=== PATIENT | female | born 1930 | race Caucasian/White ===

== ENCOUNTER 2016-03-16 07:38 | Day surgery (SDC) | payer MEDICARE, BC ==
[~2016-03-16 07:38] MED LIST: Buffered Lidocaine 1% SYR 3ML* 3 ML/SYR SYRINGE INTRADERM ONE; Buffered Lidocaine 1% SYR 3ML* 3 ML/SYR SYRINGE ONE; Famotidine IV* 10 MG/ML 2 ML (20 mg) IV ONE; Famotidine IV* 10 MG/ML 2 ML (20 mg) ONE; Morphine INJ* 2 MG/ML 1 ML CARPUJECT IV PRN; PROCHLORPERAZINE INJ 5 MG/ML 2 ML VIAL IV PRN; ceFAZolin 2 GM PREMIX (*) 2 GM/50 ML BAG IVPB ONE; fentaNYL* 50 MCG/ML 2 ML VIAL (100 MCG VIAL) IV PRN; oxyCODONE/Acetamin 5/325 MG* TAB PO PRN
[2016-03-16] MEDS ORDERED: Famotidine IV* 10 MG/ML 2 ML (20 mg) ONE (07:58)
[2016-03-16] MEDS ORDERED: Buffered Lidocaine 1% SYR 3ML* 3 ML/SYR SYRINGE ONE (07:58)
[2016-03-16] MEDS ORDERED: ceFAZolin 2 GM PREMIX (*) 2 GM/50 ML BAG IVPB ONE (07:58)
[2016-03-16] MEDS ORDERED: fentaNYL* 50 MCG/ML 2 ML VIAL (100 MCG VIAL) ONE (08:09)
[2016-03-16] MEDS ORDERED: KETAMINE HCL* 50 MG/ML 10 ML VIAL ONE (08:09)
[2016-03-16] MEDS ORDERED: Midazolam* 1 MG/ML 2 ML VIAL (2 MG) ONE (08:09)
[2016-03-16] MEDS ORDERED: Propofol* 10 MG/ML 20 ML BTL IV PUSH ONE (08:36)
[2016-03-16] MEDS ORDERED: Bupivacaine 0.5% W/EPI SDV* 30 ML VIAL ONE (09:20)
[2016-03-16] MEDS ORDERED: Lidocaine 1% INJ* 10 MG/ML 30 ML SDV ONE (09:21)
[2016-03-16] MEDS ORDERED: Phenylephrine INJ* 10 MG/ML 1 ML VIAL (10 MG) ONE (10:02)
[2016-03-16] MEDS ORDERED: Dexamethasone IV* 4 MG/ML 1 ML (4 MG) ONE (10:39)
[2016-03-16] MEDS ORDERED: Lidocaine 2% PF* 10 ML AMP ONE (10:39)
[2016-03-16] MEDS ORDERED: Ondansetron INJ* 2 MG/ML VIAL ONE (10:39)
--- NOTE | 2016-03-16 10:54 | SURGPN ---
Brief Operative Note - Surgery Procedures: OPERATIVE REPORT PRE-OP: Right inguinal hernia POST-OP: Right indirect inguinal hernia PROCEDURE: Open repair with mesh of indirect right inguinal hernia SURGEON: MD Ramu ANESTHESIA:Local with MAC with [place] ASST: None IVF: min EBL: min SPECIMEN: none DRAIN: none WOUND CLASS:One COMPLICATIONS: none TO PACU
[2016-03-16 12:27] VITALS: BP 138/57
--- NOTE | 2016-03-17 03:39 | OP ---
DATE OF OPERATION: 03/16/16 [facility] DATE OF : 28 SURGEON: Austen Guallpa MD LABORATORY AIDE: None. ANESTHESIOLOGIST: Dr. Monteiro. ANESTHESIA: Local with monitored anesthesia care. PRE-OP DIAGNOSIS: Right inguinal hernia. POST-OP DIAGNOSIS: Right indirect inguinal hernia. OPERATIVE PROCEDURE: Open repair with mesh of a right indirect inguinal hernia. ESTIMATED BLOOD LOSS: Minimal. SPECIMENS: None. COMPLICATION: None. DRAINS: None. WOUND CLASSIFICATION: I. IV FLUIDS: Minimal. FINDINGS: Moderate-sized indirect inguinal hernia repaired with mesh. DESCRIPTION OF PROCEDURE: Written informed consent was obtained, the right groin was marked with indelible ink, and preoperative antibiotics were administered and the patient was taken to the operating room and placed in the supine position. Sequential compression devices and a warming blanket were applied. Anesthesia was administered. The right groin and lower abdomen were prepped and draped in the usual sterile fashion. Time-out verification was completed. Next, 0.25% Marcaine mixed with 1% lidocaine was infiltrated in the right groin area. An oblique incision was made several fingerbreadths above the inguinal crease, carried down through Yodit's fascia. The external oblique aponeurosis was identified and opened in the direction of its fibers. It was evident that there was a hernia sac protruding through the inguinal floor. With careful dissection, I was able to identify the direct space, which appeared to be intact and the neck of the indirect hernia sac was dissected up into the internal ring lateral to the palpable epigastric vessels and was reduced without difficulty. I did divide the round ligament and also an ilioinguinal nerve. The ilioinguinal and iliohypogastric nerves were sacrificed in anticipation of a complete mesh placement. Once the hernia was reduced, a 4 cm x 8 cm piece of polypropylene mesh was cut in an oval shape and sutured to the pubic tubercle medially, the conjoined tendon superiorly, the musculature laterally with interrupted 0 Polysorb suture. It was secured to the inguinal ligament inferiorly with a running 0 Polysorb suture. This covered the indirect and direct spaces nicely with obvious no spermatic cord. Hemostasis was assured and additional marking was infiltrated. The external oblique aponeurosis was closed with running 3-0 Polysorb suture. The Yodit's fascia was closed with interrupted 3-0 Polysorb suture. The skin was approximated with subcuticular 4-0 Polysorb suture. Steri-Strips and sterile dressings were applied. The patient tolerated the procedure well, was taken to the recovery room in stable condition. [id number]/[facility] #: [id number] ART
== END 2016-03-16 12:26 | disposition home or self-care (01) ==
LOC: OR 07:38
PROVIDERS: ATTEND Surgery
DX: K40.90 Unilateral inguinal hernia, without obstruction or gangrene, not specified as recurrent (principal); J44.9 Chronic obstructive pulmonary disease, unspecified; I10 Essential (primary) hypertension; I34.0 Nonrheumatic mitral (valve) insufficiency; I65.29 Occlusion and stenosis of unspecified carotid artery
CPT/HCPCS: C1781; J0690; J1100; J2001; J2250; J2405; J2704; J3010

== ENCOUNTER 2017-07-29 13:59 | Emergency (ER) | payer BC, MEDICARE ==
[2017-07-29 14:28] VITALS: BP 162/63
--- NOTE | 2017-07-29 14:45 | UC ---
Eye Complaint HPI - HPI Summary HPI Summary: For the past 4 + weeks, aware of a papule infer-lateral to the right eye, with increasing eye discharge. Over the past 4 days, has increase in eythema of the upper and lower lids on on the right, without pain or changes in vision. No photophobia. No fever. - History of Current Complaint Chief Complaint: UCEye Stated Complaint: EYE REDNESS/SWELLING Time Seen by Provider: 07/29/17 14:33 Hx Obtained From: Patient Onset/Duration: Gradual Onset, Lasting Days Timing: Constant Severity Initially: Mild Severity Currently: Moderate Pain Intensity: 0 Aggravating Factor(s): Other - touch Alleviating Factor(s): Other - warm compresses Associated Signs And Symptoms: Positive: Drainage (Purulent) - Risk Factors Penetrating Injury Risk Factor: Negative Acute Glaucoma Risk Factors: Negative - Allergies/Home Medications Allergies/Adverse Reactions: Allergies Allergy/AdvReac Type Severity Reaction Status Date / Time MS Sulfamethoxazole Allergy Mild Shortness Verified 03/09/16 11:05 w/Trimethoprim of Breath [From Bactrim] MS Diltiazem [From Cartia XT] Allergy Shortness Verified 03/09/16 11:05 of Breath MS Sulfa Drugs [Sulfa Drugs] Allergy Shortness Verified 03/09/16 11:05 of Breath Home Medications: Home Medications Acetaminophen [Acetaminophen ER] 650 mg PO Q6H PRN 07/29/17 [History Confirmed 07/29/17] Arnica 1 each TOPICAL TID PRN 07/29/17 [History Confirmed 07/29/17] Bismuth Subsalicylate [Bismatrol] 15 ml PO Q4H PRN 07/29/17 [History Confirmed 07/29/17] Calcium Carb/Magnesium Hydrox [Antacid 1000-200 mg Tab Chew] 1 each PO DAILY [History Confirmed 07/29/17] Conjugated Estrogens VAG CM* [Premarin VAG CREAM*] 1 each TOPICAL WEEKLY [History Confirmed 07/29/17] Guaifenesin/Dextromethorphan [Guaifenesin Dm Syrup] 10 ml PO Q4H PRN 07/29/17 [ History Confirmed 07/29/17] Lidocaine 4% GEL* [Topicaine 4% GEL*] 1 applic PO TID PRN 07/29/17 [History Confirmed 07/29/17] Magnesium Hydroxide LIQ* [Milk of Magnesia LIQ*] 30 ml PO DAILY 07/29/17 [ History Confirmed 07/29/17] [place]-3S/Dha/Epa/Fish Oil [Fish Oil 1,200 mg Softgel] 1 each PO DAILY 07/29/17 [ History Confirmed 07/29/17] PARoxetine HCL TAB* [Paxil TAB*] 40 mg PO DAILY 07/29/17 [History Confirmed ] Psyllium MARLENI* [Metamucil MARLENI*] 1 pkt PO DAILY PRN 07/29/17 [History Confirmed ] Silver Sulfadiazine 1%* [SILVadine 1%*] 1 applic TOPICAL DAILY 07/29/17 [ History Confirmed 07/29/17] diphenhydrAMINE HCl [Diphenhist] 25 mg PO Q6H PRN 07/29/17 [History Confirmed ] PMH/Surg Hx/FS Hx/Imm Hx - Additional Past Medical History Additional PMH: osteoporosis peripheral edema bilateral hearing loss--wears aides - Surgical History Surgical History: Yes Surgery Procedure, Year, and Place: APPY AT AGE 9;. TONSILLECTOMY AT AGE 18, [facility]. GB REMOVED AT AGE 29. [facility]. PT WEARS A PESSARY FOR VAGINAL PROLAPSE HAS HAD THIS FOR A FEW YEARS NOW. 2012 pancreatic stent. [facility]. 2013 BILATERAL CATARACT EXTRACTION WITH IOL IMPLANT, [facility] - Family History Known Family History: Positive: Unknown - Social History Occupation: Retired Lives: Assisted Living - [facility] Alcohol Use: None Substance Use Type: None Smoking Status (MU): Never Smoked Tobacco Review of Systems Constitutional: Negative Skin: Negative Eyes: Drainage, Eye Redness ENT: Negative Respiratory: Negative Cardiovascular: Negative Gastrointestinal: Negative Genitourinary: Negative Motor: Negative Neurovascular: Negative Musculoskeletal: Negative Neurological: Headache - has had a headache off and on, but none today Psychological: Negative Is Patient Immunocompromised?: No All Other Systems Reviewed And Are Negative: Yes Physical Exam Triage Information Reviewed: Yes Appearance: Well-Appearing - elderly woman, marked kyphosis, Well-Nourished Vital Signs: Initial Vital Signs Temp 99.4 F 07/29/17 14:22 Pulse 85 07/29/17 14:22 Resp 16 07/29/17 14:22 BP 162/63 07/29/17 14:22 Pulse Ox 98 07/29/17 14:22 Eye Exam: Other - erythema over approx 6 cm circumference both upper and lower lids. Boggy conjunctiva left lower lid. + light discharge. No photophobia. Eyes move symmetrically with a few beats of lateral nystagmus. Eyes: Positive: Conjunctiva Inflamed - mild injection both right and left, with purulent discharge on the left and right. ENT: Positive: Pharynx normal, TMs normal Respiratory: Positive: Lungs clear - Mildly decreased breath sounds Cardiovascular: Positive: RRR, Murmur:Sys:Grade _?_/ - 1, left sternal border to apex. Musculoskeletal: Positive: Edema @ - both lower legs, pitting edema 2-3+ Neurological: Positive: Alert, Muscle Tone Normal Psychological Exam: Other - mildly anxious Skin Exam: Normal Eye Complaint Course/Dx - Course Course Of Treatment: cephalexin for pre-septal cellulitis, drops for conjunctivitis. - Differential Dx/Diagnosis Differential Diagnosis/HQI/PQRI: Periorbital Cellulitis, Orbital Cellulitis, Uveitis Provider Diagnoses: preseptal cellulitis; bilateral conjunctivitis. Discharge - Sign-Out/Discharge Documenting (check all that apply): Discharge/Admit/Transfer - Discharge Plan Condition: Stable Disposition: HOME Prescriptions: cephALEXin [Keflex] 500 mg PO QID #20 capsule Tobramycin 0.3% OPHTH.CHAVA* 2 drop BOTH EYES QID 5 Days #1 btl Patient Education Materials: Periorbital Cellulitis in Adults (ED) Referrals: Jameel Reid MD [Primary Care Provider] - Additional Instructions: Begin cephalexin to treat the infection in the soft tissue around the right eye. Continue compressing the eye for 5 minutes 2 or 3 times per day. Use drops to BOTH eyes to treat the conjunctivitis which you have. Follow up if you are not seeing improvement in 2 days, OR earlier if you develop eye pain or fever or any visual blurring. - Billing Disposition and Condition Condition: STABLE Disposition: Home
--- NOTE | 2017-07-31 10:00 | ED ---
Progress - Progress Note Progress Note: 87 yr old female on keflex as prescribed by provider for preseptal cellulitis and also tobramycin drops to eye for some drainage. I am told the patient has used all the eye drops in two days. I have not seen or examined the patient and am going just on the provider note from the other day and what has been relayed to me by the nurse in addition to the note given me by the nurse. I am told the patient has had marked improvement which is not in the nurses note. If the patient has marked improvement and redness almost completely gone, and drainage gone: she should continue her present antibiotic orally as this seems to be working. Would not refill the eye drops as they can cause irritation, and she is on oral antibiotics which can treat the conjunctivitis component. If the patient has any pain, increased redness, fever or concerns she needs to go the hospital emergency department for further work up and treatment. Course/Dx - Course Course Of Treatment: cephalexin for pre-septal cellulitis, drops for conjunctivitis. Discharge - Sign-Out/Discharge Documenting (check all that apply): Discharge/Admit/Transfer - Discharge Plan Condition: Stable Disposition: HOME Prescriptions: cephALEXin [Keflex] 500 mg PO QID #20 capsule Tobramycin 0.3% OPHTH.CHAVA* 2 drop BOTH EYES QID 5 Days #1 btl Patient Education Materials: Periorbital Cellulitis in Adults (ED) Referrals: Jameel Reid MD [Primary Care Provider] - Additional Instructions: Begin cephalexin to treat the infection in the soft tissue around the right eye. Continue compressing the eye for 5 minutes 2 or 3 times per day. Use drops to BOTH eyes to treat the conjunctivitis which you have. Follow up if you are not seeing improvement in 2 days, OR earlier if you develop eye pain or fever or any visual blurring. - Billing Disposition and Condition Condition: STABLE Disposition: Home
== END 2017-07-29 15:23 | disposition home or self-care (01) ==
LOC: UCCORT 13:59
DX: L03.213 Periorbital cellulitis (principal); H10.9 Unspecified conjunctivitis; Z88.1 Allergy status to other antibiotic agents; Z88.8 Allergy status to other drugs, medicaments and biological substances
CPT/HCPCS: 99212; G0463

== ENCOUNTER 2017-11-22 09:56 | Emergency (ER) | payer MEDICARE ==
[2017-11-22 12:11] VITALS: BP 149/54
--- NOTE | 2017-11-22 12:54 | RAD ---
HISTORY: cough, s/p radiation to the breast COMPARISONS: August 03, 2007 VIEWS: 4: Frontal dual-energy and lateral views of the chest. FINDINGS: CARDIOMEDIASTINAL SILHOUETTE: The cardiomediastinal silhouette is normal. ROSE: The rose are normal. PLEURA: The costophrenic angles are sharp. No pleural abnormalities are noted. LUNG PARENCHYMA: There is hyperinflation with flattening of the diaphragm and expansion of the AP diameter of the chest. ABDOMEN: The upper abdomen is clear. There is no subphrenic gas. BONES AND SOFT TISSUES: There is a scoliotic curvature of the spine. Degenerative changes are noted. OTHER: None. IMPRESSION: HYPERINFLATION, CONSISTENT WITH COPD. NO ACTIVE CARDIOPULMONARY DISEASE.
--- NOTE | 2017-11-22 12:55 | RAD ---
HISTORY: left sided pleuritic pain COMPARISONS: None VIEWS: 4 , Frontal view of the chest with frontal and oblique views of the left hemithorax FINDINGS: There are minimally displaced fractures of the left eighth, ninth, and 10th ribs. There is no appreciable pneumothorax. IMPRESSION: MINIMALLY DISPLACED FRACTURES OF THE LEFT EIGHTH, NINTH, AND 10TH RIBS. NO APPRECIABLE PNEUMOTHORAX.
--- NOTE | 2017-11-22 13:04 | ED ---
Respiratory - HPI Summary HPI Summary: patient with pain in the left sided portion of the chest. fell several times at home over the last several weeks. last fall about two weeks ago. - History of Current Complaint Chief Complaint: UCGeneralIllness Stated Complaint: BODY ACHES Time Seen by Provider: 11/22/17 12:14 Hx Obtained From: Patient Onset/Duration: Gradual Onset, Lasting Days Initial Severity: Moderate Current Severity: Moderate Pain Intensity: 0 Sputum Amount: None Aggravating Factor(s): Deep Breaths Alleviating Factor(s): Nothing Associated Signs and Symptoms: Negative - Risk Factors Status Asthmaticus Risk Factors: Negative Pulmonary Embolism Risk Factors: Negative Cardiac Risk Factors: Negative Pseudomonas Risk Factors: Negative - Allergy/Home Medications Allergies/Adverse Reactions: Allergies Allergy/AdvReac Type Severity Reaction Status Date / Time diltiazem [From Cartia XT] Allergy Shortness Verified 11/22/17 11:51 of Breath Sulfa (Sulfonamide Allergy Shortness Verified 11/22/17 11:51 Antibiotics) of Breath sulfamethoxazole Allergy Shortness Verified 11/22/17 11:51 [From Bactrim] of Breath trimethoprim [From Bactrim] Allergy Shortness Verified 11/22/17 11:51 of Breath Home Medications: Home Medications FLUoxetine CAP* [Prozac CAP*] 1 tab QAM 11/22/17 [History Confirmed 11/22/17] Metoprolol Tartrate TAB* [Lopressor TAB*] 1 tab DAILY 11/22/17 [History Confirmed 11/22/17] predniSONE [Prednisone 5 MG TAB] 1 tab DAILY 11/22/17 [History Confirmed ] PMH/Surg Hx/FS Hx/Imm Hx Previously Healthy: No Endocrine/Hematology History: Denies: Hx Diabetes, Hx Systemic Lupus Erythematosus Cardiovascular History: Reports: Hx Hypertension, Other Cardiovascular Problems/ Disorders - CHOLESTEROL CONTROL WITH MEDS Denies: Hx Congestive Heart Failure, Hx Pacemaker/ICD Respiratory History: Reports: Hx Chronic Obstructive Pulmonary Disease (COPD) GI History: Reports: Hx Gastroesophageal Reflux Disease - CONTROL WITH MED, Other GI Disorders - GERD History: Reports: Other Problems/Disorders - PT HAS A PROLAPSED UTERUS - USE PESSARY Denies: Hx Dialysis, Hx Renal Disease Musculoskeletal History: Reports: Hx Arthritis Denies: Hx Rheumatoid Arthritis Sensory History: Reports: Hx Cataracts, Hx Contacts or Glasses - GLASSES, Hx Hearing Aid - BILATERAL Opthamlomology History: Reports: Hx Cataracts, Hx Contacts or Glasses - GLASSES Psychiatric History: Denies: Hx Panic Disorder - Cancer History Hx Chemotherapy: No - Surgical History Surgery Procedure, Year, and Place: APPY AT AGE 9;. TONSIL[place]OM[facility] AT AGE 18, [facility]. GB REMOVED AT AGE 29. [place], [place]. PT WEARS A PESSARY FOR VAGINAL PROLAPSE HAS HAD THIS FOR A FEW YEARS NOW. 2012 pancreatic stent. [facility]. 2013 BILATERAL CATARACT EXTRACTION WITH IOL IMPLANT, [facility] Hx Anesthesia Reactions: No Infectious Disease History: No Infectious Disease History: Denies: Traveled Outside the [place] in Last 30 Days - Family History Known Family History: Positive: Unknown - Social History Alcohol Use: None Substance Use Type: Reports: None Smoking Status (MU): Never Smoked Tobacco Review of Systems Constitutional: Negative Eyes: Negative ENT: Negative Cardiovascular: Negative Positive: Shortness Of Breath Gastrointestinal: Negative Genitourinary: Negative Musculoskeletal: Negative Skin: Negative All Other Systems Reviewed And Are Negative: Yes Physical Exam Triage Information Reviewed: Yes Vital Signs On Initial Exam: Initial Vitals Temp Pulse Resp BP Pulse Ox 36.3 C 68 16 149/54 98 11/22/17 11:59 11/22/17 11:59 11/22/17 11:59 11/22/17 11:59 11/22/17 11:59 Vital Signs Reviewed: Yes Appearance: Positive: Ill-Appearing, Pain Distress Skin: Positive: Warm, Dry Eyes: Positive: Normal ENT: Positive: Normal ENT inspection Neck: Positive: Supple Respiratory/Lung Sounds: Positive: Rales - left lower lobe Cardiovascular: Positive: Normal Abdomen Description: Positive: Nontender, No Organomegaly Bowel Sounds: Positive: Present Musculoskeletal: Positive: Other - pain right chest on palpation Neurological: Positive: Normal Psychiatric: Positive: Normal AVPU Assessment: Alert Diagnostics - Vital Signs Vital Signs Temp Pulse Resp BP Pulse Ox 11/22/17 11:59 36.3 C 68 16 149/54 98 - Laboratory Lab Statement: Any lab studies that have been ordered have been reviewed, and results considered in the medical decision making process. Disposition - Diagnoses Provider Diagnoses: Fracture, ribs Discharge - Sign-Out/Discharge Documenting (check all that apply): Patient Departure All imaging exams completed and their final reports reviewed: Yes - Discharge Plan Condition: Fair Disposition: HOME Patient Education Materials: Rib Fracture (ED) Referrals: Gauss,Jameel F, MD [Primary Care Provider] - - Billing Disposition and Condition Condition: FAIR Disposition: Home
== END 2017-11-22 13:26 | disposition home or self-care (01) ==
LOC: UCCORT 09:56
DX: S22.42XA Multiple fractures of ribs, left side, initial encounter for closed fracture (principal); W19.XXXA Unspecified fall, initial encounter; Z91.81 History of falling; Y92.009 Unspecified place in unspecified non-institutional (private) residence as the place of occurrence of the external cause; Z88.1 Allergy status to other antibiotic agents; Z88.8 Allergy status to other drugs, medicaments and biological substances; I10 Essential (primary) hypertension; K21.9 Gastro-esophageal reflux disease without esophagitis
CPT/HCPCS: 71046; 99212; G0463

== ENCOUNTER 2017-11-22 11:33 | Emergency (ER) | payer MEDICARE ==
--- OUTSIDE RECORDS SUMMARY | 2017-11-22 11:54 | XMS REPORT | Continuity of Care Document ---
:1930 External Reference #:[id number] Author Name Kay Montgomery Care Team Providers Name Role Phone Talya Martinez MD Care Team Information Ingredient Handler Unavailable Jameel Reid M.D. Primary Care Physician Unavailable Payers Type Date Identification Numbers Payment Provider Subscriber Effective: 1994 Policy Number: [id number] Medicare Kathy Ochoa PayID: [id number] [address] [place] [address] Effective: 2014 Policy Number: [id number] [place] Plan Trevon Ochoa PayID: [id number] [address] [place] [address] Advance Directives Description No Information Available Problems Description No Information Family History Date Family Member(s) Problem(s) Comments Father due to Pneumonia () Mother due to Natural Causes () First Sister Breast Cancer Social History Type Date Description Comments Sex Unknown Marital Status Patient is Occupation Patient is retired Tobacco Use Reviewed: 11/11/17 Never Smoked Cigarettes Smoking Status Reviewed: 11/11/17 Never Smoked Cigarettes ETOH Use Patient denies alcohol use Allergies, Adverse Reactions, Alerts Date Description Reaction Status Severity Comments 08/24/2014 Bactrim Urticaria Active 08/24/2014 Sulfa Urticaria Active 08/24/2014 Cartia XT Unknown Active Medications Medication Date Status Form Strength Qnty SIG Indications Ordering Provider Paroxetine HCL Active Tablets 20mg Gauss, 000 JameelWilber. Metoprolol 0 Active Tablets ER 100mg Gauss, Succinate ER 000 24HR Wilber Jorgensen. Torsemide 0 Active Tablets 20mg Gauss, 000 Lynda JorgensenD. Tramadol HCL Active Tablets 50mg Gauss, 000 Nereyda Jorgensen Hydroxyzine HCL Active Tablets 50mg Unknown 000 Shyla-C Active Tablets 500mg 1 by Unknown 000 mouth every day Vitamin B12 0 Active Tablets 250mcg 1 by Unknown 000 mouth every day Vitamin E 0 Active Capsules 200Unit 1 by Unknown 000 mouth every day Vitamin D3 Active Tablets 500Units 1 by Unknown 000 mouth every day Vitamin B6 Active Tablets 100mg Unknown 000 Potassium Active Capsules 10Meq 1 by Unknown Chloride ER 000 ER mouth every day Prednisone Active Tablets 5mg Yang Reid M.D. Hydrocortisone Active Cream 2.5% Yang Reid M.D. Raloxifene HCL Hx Tablets 60mg Yang Reid - Nereyda Jorgensen 015 Naproxen Hx Tablets 500mg Yang Reid M.D. 017 Lipitor Hx Tablets 20mg 1 by Unknown 000 - mouth every 017 day Miacalcin Hx Solution 200Unit/Ac Unknown 000 - t 017 Caltrate 600+D Hx Tablets 600-400mg- twice a Unknown 000 - Unit day 018 Folic Acid Hx Tablets 800mcg 1 by Unknown 000 - mouth every 018 day Zinc Hx Tablets 30mg 1 by Unknown 000 - mouth every 018 day Clobetasol Hx Ointment 0.05% Jackson, Propionate 000 - Lexus R.[facility]. 018 Premarin Hx Cream 0.625mg/GM Jackson, 000 - [place] [facility] 018 Naproxen Hx Tablets 500mg Gasandhya 000 - Nasreen, MLiliana 018 SSD Hx Cream 1% Gasandhya 000 - Nasreen, M.DNuvia 018 Immunizations Description No Information Available Vital Signs Date Vital Result Comment 01/25/2017 3:02pm Height 63 inches 5'3" Weight 125.00 lb Weight 56.700 kg BMI (Body Mass Index) 22.1 kg/m2 BP Systolic 131 mmHg BP Diastolic 65 mmHg Heart Rate 69 /min Post Void Residual ml 0 Bladder Scan, Indication:feeling of incomplete 09/18/2015 10:24am Height 63 inches 5'3" Weight 125.00 lb Weight 56.700 kg BMI (Body Mass Index) 22.1 kg/m2 BP Systolic 147 mmHg left wrist audio BP Diastolic 61 mmHg left wrist audio Heart Rate 70 /min Body Temperature 97.6 F 08/24/2014 10:30am Height 62 inches 5'2" Weight 125.00 lb Weight 56.700 kg BMI (Body Mass Index) 22.9 kg/m2 BP Systolic 138 mmHg right wrist audio BP Diastolic 62 mmHg right wrist audio Heart Rate 67 /min Body Temperature 97.9 F Results Test Date Facility Test Result H/L Range Note 230 Ua Routine 11/11/2017 [facility] Ua Glucose Negative REF TO DR ADDRESS ON ORDER FOR (315)- - Ua Protein Negative Ua Nitrite Negative Ua Leuko Negative Ua Blood Negative Ua Color Yellow Ua Ketones Negative Ua Clarity Clear Ua Specific [place] 1.020 1.003-1.030 Ua PH 5.5 5.0-7.5 Ua Bilirubin Negative Ua Urobilinogen 0.2 E.U./dL 0.0-1.0 Basic Metabolic Panel 09/08/2017 N2N/CCD Import Anion Gap 6 mEq/L Low 8- 16 BUN 23 mg/dL High 7-18 BUN/Creat 17.6 ratio Calcium 8.8 mg/dL 8.5-10.1 Carbon Dioxide 34 mmol/L High 21-32 Chloride 100 mmol/L 98-107 Creatinine 1.3 mg/dL 0.6-1.3 Glom Filtration Rate, Estimate 41 mL/min Glucose 113 mg/dL High 74-106 If 50 mL/min Potassium 3.5 mmol/L 3.5-5.1 Sodium 140 mmol/L 136-145 CBS W/Automated Diff 09/08/2017 N2N/CCD Import Bas% 0.4 % 0-1.1 Baso # 0.05 K/uL 0-0.1 Eo% 1.2 % 0-6.6 Eos # 0.13 K/uL 0-0.5 Hematocrit 34.0 % Low 36-46.1 Hemoglobin 10.1 gm/dL Low 11.6-15.8 Lymph # 1.98 K/uL 1-4 Lymph % 17.8 % Low 20-42 Mean Cell Volume 87.2 fl 80.9-99 Mean Corpuscular HGB 25.9 pg 25.9-32.7 Mean Corpuscular HGB Conc 29.7 g/dL Low 30.8-34.3 Mean Platelet Volume 10.4 fL 8.9-12.4 Harrison # 1.34 K/uL High 0.3-0.9 Harrison % 12.0 % 4.3-13.2 Neut# 7.63 K/uL High 1.8-7 Neut% 68.6 % 40.4-72.8 Platelet Count 337 K/uL 155-360 Red Blood Count 3.90 M/uL 3.9-5.4 Red Cell Distri Width %CV 16.9 % High 11.7-14.4 Red Cell Distri Width SD 52.9 fl High 3-47 White Blood Count 11.1 K/uL High 3.1-10.7 230 Ua Routine 01/25/2017 [facility] Ua Glucose Negative REF TO DR ADDRESS ON ORDER FOR (315)- - Ua Protein Negative Ua Nitrite Negative Ua Leuko 1+ Ua Blood Trace-intact Ua Color light yellow Ua Ketones Negative Ua Clarity clear Ua Specific [place] 1.015 1.003-1.030 Ua PH 7.5 5.0-7.5 Ua Bilirubin Negative Ua Urobilinogen 0.2 E.U./dL 0.0-1.0 Urine Culture 06/10/2016 [facility] Urine Culture MIXED URETHRAL 1, [address] <SEE NOTE> [place], [place] [address] [phone] Quantity 10,000 - 50,000 <SEE NOTE> 3 230 Ua Routine 06/10/2016 [facility] Ua Glucose Negative REF TO DR ADDRESS ON ORDER FOR (315)- - Ua Protein Negative Ua Nitrite Negative Ua Leuko 1+ Ua Blood Trace-intact Ua Color yellow Ua Ketones Negative Ua Clarity clear Ua Specifici [place] 1.015 1.003-1.030 Ua PH 7.0 5.0-7.5 Ua Bilirubin Negative Ua Urobilinogen 0.2 E.U./dL 0.0-1.0 Laboratory test finding 05/26/2016 Outside Facility Ua Color Yellow Yellow (315)- - Ua Clarity Clear Clear Ua Glucose Neg Neg Ua Bilirubin Neg Neg Ua Ketones Neg Neg Ua Specifici [place] 1.010 1.010-1.030 Ua Blood Moderate High Neg Ua PH 6.5 6.5-7.5 Ua Protein Neg Neg Ua Urobilinogen 0.2 0.2-1.0 Ua Nitrite Neg Neg Ua Leuko Small High Neg Urine Culture Mixed Urethral a High Laboratory test finding 05/21/2016 Outside Facility Ua Color Yellow Yellow (315)- - Ua Clarity Clear Clear Ua Glucose Neg Neg Ua Bilirubin Neg Neg Ua Ketones Neg Neg Ua Specifici [place] 1.010 1.010-1.030 Ua Blood Trace High Neg Ua PH 7.0 6.5-7.5 Ua Protein Neg Neg Ua Urobilinogen 0.2 0.2-1.0 Ua Nitrite Neg Neg Ua Leuko Moderate High Neg Urine Culture Mixed Urethral a High Laboratory test finding 05/14/2016 Outside Facility Ua Color Yellow Yellow (315)- - Ua Clarity Clear Clear Ua Glucose Neg Neg Ua Bilirubin Neg Neg Ua Ketones Neg Neg Ua Specifici [place] 1.010 1.010-1.030 Ua Blood Trace High Neg Ua PH 6.0 Low 6.5-7.5 Ua Protein Neg Neg Ua Urobilinogen 0.2 0.2-1.0 Ua Nitrite Neg Neg Ua Leuko Neg Neg Urine Microscopy 05/07/2016 [facility] Urine WBC 6- 10 /HPF 0 - 5 [address] [place] [address] [phone] Urine RBC 10-25 /HPF 0-2 Bacteria RARE /HPF Neg Crystals amorph 1+ /HPF Neg Epithelial Cells 1+ /HPF Neg Sperm NEG /HPF Neg Yeast NEG /HPF Neg Urine Cytology 05/07/2016 [facility] Clinical History R31.1 [address] [place] [address] [phone] Specimen Adequacy Satisfactory for <SEE NOTE> 4 BodySite Voided - Clean C <SEE NOTE> 5 Gross Description Received in a sp <SEE NOTE> 6 Microscopic Description Moderate numbers <SEE NOTE> 7 Final Diagnosis NEGATIVE FOR HIG <SEE NOTE> 8 CPTCode 67278 PDF Report SEE IMAGE 230 Ua Routine 05/07/2016 [facility] Ua Glucose Negative REF TO DR ADDRESS ON ORDER FOR (315)- - Ua Protein Negative Ua Nitrite Negative Ua Leuko 2+ Ua Blood 2+ Ua Color yellow Ua Ketones Negative Ua Clarity clear Ua Specifici [place] 1.015 1.003-1.030 Ua PH 7.0 5.0-7.5 Ua Bilirubin Negative Ua Urobilinogen 0.2 E.U./dL 0.0-1.0 Urine Cytology 10/25/2015 [facility] Clinical History R31.[address] [place] [id number] [phone] Specimen Adequacy Satisfactory for <SEE NOTE> 9 BodySite Voided Home Gross Description Received in a sp <SEE NOTE> 10 Microscopic Description Mild numbers of <SEE NOTE> 11 Final Diagnosis NEGATIVE FOR HIG <SEE NOTE> 12 CPTCode 08265 PDF Report SEE IMAGE Urine Microscopy 09/18/2015 [facility] Urine WBC 3-5 /HPF 0 - [address] [place] [address] [phone] Urine RBC 10-25 /HPF 0-2 Bacteria RARE /HPF Neg Crystals neg /HPF Neg Epithelial Cells 1+ /HPF Neg Sperm NEG /HPF Neg Yeast NEG /HPF Neg 230 Ua Routine 09/18/2015 [facility] Ua Glucose Negative REF TO DR ADDRESS ON ORDER FOR (315)- - Ua Protein Trace Ua Nitrite Negative Ua Leuko 1+ Ua Blood 2+ Ua Color yellow Ua Ketones Negative Ua Clarity clear Ua Specifici [place] 1.015 1.003-1.030 Ua PH 7.0 5.0-7.5 Ua Bilirubin Negative Ua Urobilinogen 0.2 E.U./dL 0.0-1.0 Urine Microscopy 03/20/2015 [facility] Urine WBC 3-5 /HPF 0 - 5 [address] [place] [address] [phone] Urine RBC 3-5 /HPF 0-2 Bacteria 1+ /HPF Neg Crystals Negative /HPF Neg Epithelial Cells 1+ /HPF Neg Sperm NEG /HPF Neg Yeast NEG /HPF Neg 230 Ua Routine 03/20/2015 [facility] Ua Glucose Negative REF TO DR ADDRESS ON ORDER FOR (315)- - Ua Protein Negative Ua Nitrite Negative Ua Leuko Trace Ua Blood 2+ Ua Color yellow Ua Ketones Trace Ua Clarity clear Ua Specific [place] 1.015 1.003-1.030 Ua PH 5.5 5.0-7.5 Ua Bilirubin Negative Ua Urobilinogen 0.2 E.U./dL 0.0-1.0 Urine Microscopy 08/24/2014 [facility] Urine WBC 0-2 /HPF 0 - 5 [address] [place] [address] [phone] Urine RBC 3-5 /HPF 0-2 Bacteria RARE /HPF Neg Crystals NEG /HPF Neg Epithelial Cells RARE /HPF Neg Sperm NEG /HPF Neg Yeast NEG /HPF Neg Urine Cytology 08/24/2014 [facility] Clinical History 599.70 [address] [place] [address] [phone] Specimen Adequacy Scant urothelial <SEE NOTE> 13 BodySite Voided - Clean C <SEE NOTE> 14 Gross Description Received in a sp <SEE NOTE> 15 Microscopic Description None. Final Diagnosis NO MALIGNANT BREE <SEE NOTE> 16 CPTCode 02258 PDF Report SEE IMAGE #Ua Routine 08/24/2014 [facility] Ua Glucose Negative REF TO DR ADDRESS ON ORDER FOR (300)- - Ua Protein Negative Ua Nitrite Negative Ua Leuko Negative Ua Blood Trace-intact Ua Color yellow Ua Ketones Negative Ua Clarity clear Ua Specific [place] 1.010 1.003-1.030 Ua PH 7.0 5.0-7.5 Ua Bilirubin Negative Ua Urobilinogen 0.2 E.U./dL 0.0-1.0 1 R31.1 2 MIXED URETHRAL ADAM 3 10,000 - 50,000 CFU/mL 4 Satisfactory for evaluation. 5 Voided - Clean Catch 6 Received in a specimen container, labeled with the patients name and , is Clear Yellow fluid consistent with urine, measuring approximately 30 ml. 7 Moderate numbers of neutrophils present. 8 NEGATIVE FOR HIGH-GRADE UROTHELIAL CARCINOMA. 9 Satisfactory for evaluation. 10 Received in a specimen container, labeled with the patients name and , is Clear Yellow fluid consistent with urine, measuring approximately 70 ml. 11 Mild numbers of neutrophils present. 12 NEGATIVE FOR HIGH-GRADE UROTHELIAL CARCINOMA. 13 Scant urothelial cells present. 14 Voided - Clean Catch 15 Received in a specimen container, labeled with the patients name and , is Clear Colorless fluid consistent with urine, measuring approximately 10 ml. 16 NO MALIGNANT CELLS IDENTIFIED. 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, midline Z87.440 Personal history of urinary (tract) infections Office Visit 05/07/2016 11:15a [facility] AmayaKathy, 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 [facility] microscopic hematuria Z87.440 Personal history of urinary (tract) infections N39.41 Urge incontinence Office Visit 09/18/2015 10:00a [facility] AmayaKathy, 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 [facility] microscopic hematuria Z87.440 Personal history of urinary (tract) infections N81.11 Cystocele, midline Office Visit 03/20/2015 10:00a [facility] AmayaKathy, 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 [facility] microscopic hematuria Z87.440 Personal history of urinary (tract) infections N81.11 Cystocele, midline Office Visit 08/24/2014 [facility] AmayaKathy, 599.70 Hematuria, 10:15a [facility] Unspecified Plan of Treatment Future Appointment(s):05/20/2018 11:00 am - Moises Penny at [facility] Declan Tqoiudd1711/11/2017 - Moises PennyR29.6 Repeated hsdroU10.1 Benign essential microscopic hematuriaNew Xrays:US Retroperitoneal Complete ( Kidneys/Bladder), Ordered: 11/11/17N20.0 Calculus of kidneyNew Xrays:US Retroperitoneal Complete (Kidneys/Bladder), Ordered: 11/11/17
--- NOTE | 2017-11-24 12:58 | UC ---
Discharge - Sign-Out/Discharge Documenting (check all that apply): Post-Discharge Follow Up All imaging exams completed and their final reports reviewed: No Studies - Discharge Plan Disposition: LEFT WITHOUT BEING SEEN Referrals: Jameel Reid MD [Primary Care Provider] - - Billing Disposition and Condition Disposition: Left Without Being Seen
== END 2017-11-22 12:49 | disposition left against medical advice (07) ==
LOC: UCCORT 11:33
DX: R52 Pain, unspecified (principal); Z53.21 Procedure and treatment not carried out due to patient leaving prior to being seen by health care provider